=== PATIENT | male | born 1940 | race Caucasian/White ===

== ENCOUNTER 2016-12-12 11:56 | Inpatient (IN) | payer MEDICARE ==
[~2016-12-12] VITALS: Ht 180.3 cm; Wt 59.2 kg
--- NOTE | ~2016-12-12 | ECH ---
Transthoracic Echocardiography Report (TTE) Demographics Patient Name BIJAL PORTER Date of Study 12/13/2016 Patient Number [id number] Visit Number [id number] Date of 1940 Room Number 311 Accession Number [id number] Gender Male Age 76 year(s) Referring King Sunil Camacho MD Concrete Layer Kristel Voss Physician Dax Thomson MD [facility] Physician Interpreting Cheyenne Glover MD Automatic Glove Turner And Former Physician Supervising Ordering Physician King Sunil Camacho MD, MD/P Nurse Stress [employer] Machine Tender Conclusions Summary Technically adequate exam. The estimated left ventricular ejection fraction is 50%. Moderate assymetric septal left ventricular hypertrophy. Diastolic assessment reveals Grade I diastolic dysfunction. The left atrium is severely dilated by LA volume index measurement. moderate mitral regurgitation by color Doppler. Procedure Type of Study TTE procedure:Echo Complete SF. Procedure Date Date: 12/13/2016 Start: 08:48 AM Technical Quality: Adequate visualization Indications:Elevated Troponin and Hypertension. Appropriate Use Criteria: 9 Height: 71 inches Weight: 129 pounds BSA: 1.75 m Rhythm: Within normal limits HR: 86 bpm BP: 129/79 mmHg M-Mode/2D Measurements LV Diastolic Dimension: 5.04 cm LV Systolic Dimension: 3.94 cm LV Septum Diastolic: 1.66 cm LV PW Diastolic: 0.78 cm AO Root Dimension: 3.13 cm Cardiac Output: 4.84 l/min LA Dimension: 3.93 cm Cardiac Index: 2.77 l/min*m RV Diastolic Dimension: 3.08 cm LA volume index: 52 ml/m LVOT: 1.98 cm LVOT VTI: 18.27 cm RV Base: 3.8 cm LV Stroke volume: 56.23 ml RV Mid: 2.2 cm LV Stroke volume index: 32.13 ml/m TAPSE: 2.2 cm TDI-S': 13 cm/s Doppler Measurements AV Peak Velocity: 1.7 m/s MV Peak E-Wave: 1.11 m/s AV Peak Gradient: 11.56 mmHg MV Peak A-Wave: 1.19 m/s AV Mean Gradient: 7.06 mmHg MV E/A Ratio: 0.93 LVOT Peak Velocity: 1.09 m/s MV P1/2t: 40.5 msec AV Area (Continuity):2.03 cm MV Deceleration Time: 153.3 msec TR Velocity:2.19 m/s MV Area (PHT): 5.44 cm TR Gradient:19.15 mmHg PV Peak Velocity: 0.73 m/s Estimated RAP:3 mmHg PV Peak Gradient: 2.12 mmHg Estimated RVSP: 22 mmHg Estimated PASP: 22.15 mmHg E' Septal Velocity: 0.04 m/s A' Septal Velocity: 0.07 m/s E' Lateral Velocity: 0.06 m/s A' Lateral Velocity: 0.08 m/s RA Area: 17.48 cm Findings Left Ventricle The left ventricle is normal in size . Moderate assymetric septal left ventricular hypertrophy. Diastolic assessment reveals Grade I diastolic dysfunction. Right Ventricle Normal right ventricle structure and function. Left Atrium The left atrium is severely dilated by LA volume index measurement. Right Atrium Normal right atrial size. Mitral Valve Normal mitral valve structure and function. Mild-moderate mitral regurgitation by color Doppler. Aortic Valve The aortic valve is mildly sclerotic. Tricuspid Valve Normal tricuspid valve structure and function. Trivial tricuspid regurgitation by color Doppler. Normal pulmonary pressures. Pulmonic Valve The pulmonic valve is not well visualized. Pericardial Effusion No evidence of pericardial effusion. Miscellaneous Visualized portions of the aortic root and ascending aorta appear normal in size. Pleural Effusion No evidence of pleural effusion. Contractility Score LV regional wall motion:(0-Non visualized 1-Normal 2-Hypokinesis 3-Akinesis 4-Dyskinesis 5-Aneurysm) Signature
--- NOTE | 2016-12-13 16:29 | CO ---
ADMIT: 12/12/2016 RM/LOC: 311 [facility] MR#: [id number] [id number] [facility] [address] [place] [id number] BIJAL PORTER [address] [place] [address] Consultation Report SEX: M AGE: 76 : 1940 Corrected: 12/13/2016 0629 njv DATE OF CONSULTATION: 12/12/2016 ATTENDING PHYSICIAN: Jean-Pierre Verduzco CONSULTING PHYSICIAN: Samuel Juan MD REASON FOR CONSULTATION: Abdominal pain and gallstones. HISTORY OF PRESENT ILLNESS: This patient is a 76-year-old male, who was admitted actually to [facility]. He had come in there with some abdominal pain, that he mostly complained of lower abdominal pain and that is what he tells me, and pain down into his lower abdomen, back. No nausea or vomiting. No diarrhea. He takes milk of magnesia basically every night to keep his bowels move in, and he has been a little more constipated, but otherwise no blood and no vomiting, nothing of that nature. He does have a history of kidney stones in the past, nothing like that. History of T-cell lymphoma. History of recurrent pneumonias, significant vascular disease with bilateral above-knee amputations. He is a smoker, continues to smoke, has for years. He has had carpal tunnels done bilaterally. Appendix is his only abdominal surgery. Bilateral AKAs. CURRENT MEDICATIONS: Please see chart. PAST MEDICAL HISTORY: Includes prostate cancer, hypothyroidism, rheumatoid arthritis, coronary artery disease, chronic kidney disease, hyperlipidemia, carotid disease. ALLERGIES: AZATHIOPRINE AND LEFLUNOMIDE. FAMILY HISTORY: Otherwise, noncontributory. REVIEW OF SYSTEMS: As above in the HPI, otherwise negative. Currently his LFTs are normal. His white count is like 1.4. His creatinine is 1.9. Chest x-ray and ultimately had a CTA, does not show any evidence of pulmonary embolism, but significant pneumonia with a bad right upper lobe pneumonia, also a new nodule that is worrisome for cancer in his right upper lobe. Looking at his ultrasound and scans, he does have evidence of gallstones and a thickened gallbladder wall, but he was nontender over his gallbladder. There were no pericholecystic fluid things of that nature. PHYSICAL EXAMINATION: GENERAL: He is alert. He is oriented. He is in no significant distress currently. HEENT: His sclerae are nonicteric. Extraocular muscles appear intact. CHEST: Clear actually anteriorly, maybe some mild decrease on the right versus the left. No wheezes. No rhonchi. HEART: Appears regular rate and rhythm. ADMIT: 12/12/2016 RM/LOC: 311 [facility] MR#: [id number] [address] [address] [facility] [place] [address] Consultation Report SEX: M AGE: 76 : 1940 ABDOMEN: Thin, soft. He does not have any rebound, does not have tenderness really in the right upper quadrant. He actually has more of left abdominal tenderness in the left side. EXTREMITIES: He has bilateral above-knee amputations. ASSESSMENT AND PLAN: At this point, I would not jump in and take his gallbladder out. He has fairly significant pneumonia, may not tolerate a general anesthetic really well right now and I do not see that as the pressing issue unless something changes. We will follow him along. He very may well need a cholecystectomy, but I do not think anything in the next 24 hours needs to be done. We will, like I said, follow him along. He also need this right upper lobe nodule, that is worrisome, worked up with bronch/biopsy depending on how best to go about that. Samuel Juan MD/ milly JOB #: [id number] CC: Jean-Pierre Verduzco, Attending Physician Jean-Pierre Verduzco, Family Physician Corrected: 12/13/2016 0629 njv
--- NOTE | 2016-12-15 07:57 | HP ---
ADMIT: 12/12/2016 RM/LOC: 311 [facility] MR#: [id number] 2620 [facility] [address] [place] [id number] BIJAL PORTER [address] [place] [address] History and Physical SEX: M AGE: 76 : 1940 DATE OF SERVICE: CHIEF COMPLAINT: Hypoxemia. HISTORY OF PRESENT ILLNESS: A 76-year-old male, who was admitted to [facility] two days ago with abdominal pain. CT scan at that time showed gallstone, possible common bile duct stone. He was given some Dilaudid earlier today for pain control, and he became hypoxemic and was placed on a non-rebreather and transferred by ambulance to the emergency room at [place]. By the time he got here, his O2 levels were good, his Dilaudid worn off, and he was breathing fine. He does have a history of COPD. His main complaint at this time is ongoing abdominal pain on the right side, right upper quadrant abdominal pain. CT scan obtained in [place] did show, as mentioned, gallstones. Ultrasound showed some thickening of the gallbladder wall and [address] scan also was consistent with some bilateral pulmonary infiltrates, chronic scarring versus pneumonia. He denies any recent problems with cough or any fever. Denies any yellow jaundice or dane- colored stool. Denies any blood in the stool. The pain has been severe steady pain in right mid abdomen, radiating into his back. He is not certain if food aggravates it or not. PAST MEDICAL HISTORY: Significant with a diagnosis of T-cell leukemia; history rheumatoid arthritis, on chronic immunosuppressive therapy with chronic methotrexate. He has had a left nveaf-dtx-jota amputation, and right knee amputated at the knee due to peripheral vascular disease secondary to a hypothermic injury many years ago. He has also had a remote history of kidney stones. ALLERGIES: NONE LISTED. HOME MEDICATIONS: 1. Doxazosin 0.5 mg p.o. daily. 2. Folic acid 1 mg daily. 3. Methotrexate 6 tablets q.week. 4. Plaquenil 200 mg daily. 5. Levothyroxine 100 mcg daily. 6. Aspirin 81 mg daily. 7. Prednisone 2.5 mg daily. SOCIAL HISTORY: Retired. Smokes less than a pack of cigarette per day. Does not drink alcohol. FAMILY HISTORY: Noncontributory. REVIEW OF SYSTEMS: Negative other than what was noted above. PHYSICAL EXAMINATION: GENERAL: A 76-year-old male, who is alert, cooperative, and oriented x3. VITAL SIGNS: At this time is stable with O2 saturation 94% on 3 L of O2, ADMIT: 12/12/2016 RM/LOC: 311 [facility] MR#: [id number] [address] [address] [place] BIJAL [address] [facility] [address] [place] [address] History and Physical SEX: M AGE: 76 : 1940 pulse is 70 and regular, respiratory rate 22, temp 98.4, and BP 122/71, one time in the emergency room, BP was down to 99/65. HEENT: Skin color is very poor. He has somewhat pale, diaphoretic. TMs not visualized. HEENT: Eyes, pupils are equal, round, and reactive to light. Extraocular muscles intact. No jaundice. Throat is somewhat dry, but not inflamed. NECK: Supple. No lymphadenopathy. No thyromegaly. LUNGS: Showed decreased breath sounds in both bases. No rales, rhonchi, or wheezes. No retractions. No respiratory distress. HEART: Regular rate. No murmur heard. ABDOMEN: Flat, bowel sounds normoactive. He has quite a bit of tenderness and guarding in the right upper quadrant of the abdomen. AND RECTAL: Deferred. EXTREMITIES: Well-healed stumps on both legs, left kqfnu-yvv-aiwm amputation. Right leg amputated at the knee and has no signs of any inflammation or irritation of the stumps. DIAGNOSTIC IMPRESSION: 1. Cholelithiasis with probable cholecystitis. 2. Hypoxemia secondary to respiratory depression from Dilaudid. 3. History of T-cell leukemia. 4. History of chronic kidney disease. 5. History rheumatoid arthritis. 6. History of hypertension. 7. Peripheral vascular disease. Previous amputation. 8. Tobacco abuse. 9. On immunosuppressive therapy, steroids and methotrexate. PLAN: Admit to the hospital, at this time, we will get cultures, start him on IV antibiotics. He has not been on any antibiotics at [place]. We will continue with oxygen, try Toradol for pain control. Try to avoid respiratory depression. Obtain a consult with Oncology and with Surgery. Jean-Pierre Verduzco MD/ milly JOB #: [id number] CC: Jean-Pierre Verduzco, Attending Physician Jean-Pierre Verduzco, Family Physician
--- NOTE | 2016-12-20 08:15 | CO ---
ADMIT: 12/12/2016 RM/LOC: 311 [facility] MR#: [id number] 2620 [facility] [address] [place] [id number] BIJAL PORTER [address] [place] [address] Consultation SEX: M AGE: 76 : 1940 DATE OF CONSULTATION: 12/13/2016 ATTENDING PHYSICIAN: Jean-Pierre Verduzco CONSULTING PHYSICIAN: Olegario Cloud MD REASON FOR CONSULTATION: Elevated troponin. HISTORY OF PRESENT ILLNESS: Bijal is a 76-year-old male, whom I was asked to see in consultation from Dr. Verduzco regarding elevated troponin level. Bijal is not the best historian, but does state that he had a myocardial infarction back in 1992; at which time, they gave him some nitroglycerin, and he did not require any further workup he says. He denies though any recent chest pain. He was admitted to [facility] a couple of days ago with abdominal pain and was found on CT scan to have gallstones and a common bile duct stone. He was given some Dilaudid yesterday for pain control and became extremely hypoxic and was placed on a non-rebreather and had to be transferred to [place] for higher level of care. He does have a history of COPD. He continued to have some abdominal pain. It was the right upper quadrant pain. He said it radiated to his back. He denied any chest pain. He has been short of breath at times. Overnight, he had cardiac enzymes checked which did elevate his troponin. Here initially, it was 34.6 and decreased to 31 this morning. His CK level was elevated at 1217 and decreased to 1151. He denies any chest pain this morning, and he says, he is more comfortable. He says, his abdominal pain is better also. PAST MEDICAL HISTORY: 1. History of T-cell leukemia, followed by Oncology. 2. History of rheumatoid arthritis, on chronic immunosuppressive therapy with methotrexate. 3. History of left sshgb-rms-gsgb amputation and right hpcxt-cke-dwoa amputation, secondary to peripheral vascular disease, secondary to hypothermic injury years ago. 4. Remote history of kidney stones. 5. Possible history of myocardial infarction back in 1992 with no workup. ALLERGIES: NO KNOWN DRUG ALLERGIES. CURRENT MEDICATIONS: 1. Heparin drip. 2. Rocephin. 3. Zosyn. SOCIAL HISTORY: He is retired. He says he lives alone by himself in [place]. Smokes less than a pack per day. Denies any alcohol use. FAMILY HISTORY: Denies any family history of early coronary artery disease. REVIEW OF SYSTEMS: GENERAL: He denies any fever or chills. ADMIT: 12/12/2016 RM/LOC: 311 [facility] MR#: [id number] [address] [address] BIJAL PORTER [address] [place] [address] Consultation SEX: M AGE: 76 : 1940 HEENT: Denies any sinus congestion. Denies any decreased hearing. CARDIAC: Denies chest pain or palpitations. RESPIRATORY: He does have a cough. Denies any shortness of breath. GASTROINTESTINAL: He has had some abdominal pain in the right upper quadrant. GENITOURINARY: He does have some frequency. Denies dysuria or hematuria. MUSCULOSKELETAL: He has back pain. He also has bilateral amputations. NEUROLOGIC: Denies any history of TIA or strokes. ENDOCRINE: Denies any history of thyroid dysfunction or diabetes. PSYCHIATRIC: Denies any anxiety or depression. SKIN: Denies any rashes. HEMATOLOGIC/ONCOLOGIC: Does have history of T-cell leukemia, on chronic immunosuppressive therapy with methotrexate secondary to his rheumatoid arthritis. All other systems are reviewed and negative. PHYSICAL EXAMINATION: VITAL SIGNS: Blood pressure 129/79, pulse is 91, respirations 30, temperature 97.8, and oxygen 95% on nasal cannula. GENERAL: He is alert, oriented, and conversant. He is in no acute distress. HEENT: Moist mucous membranes. Extraocular muscles intact. No scleral icterus. NECK: Supple. No carotid bruits. No lymphadenopathy. LUNGS: He has distant breath sounds bilaterally. There are no wheezes right now. HEART: Regular rate and rhythm. No murmurs, rubs, or gallops. ABDOMEN: Soft. He does have some mild tenderness in the right upper quadrant, but states this is much better. EXTREMITIES: He has well-healed stumps on both legs with the left above-the- knee amputation and right BKA. DIAGNOSTIC DATA: Potassium 3.5, creatinine 1.2, glucose 120. CK was 1151, MB 67, both of which are down. Troponin is 31, which is down from 34. White blood cell count 5.4, hemoglobin 12, platelets 95. Lactic acid was elevated at 2.1. IMPRESSION AND PLAN: 1. Pneumonia/sepsis. On chest x-ray. 2. Elevated troponin. His troponin is significantly elevated, but he does not have any chest pain or ischemic EKG changes at this point. His EKG ADMIT: 12/12/2016 RM/LOC: 311 [facility] MR#: [id number] [address] [address] BIJAL PORTER [address] [place] [address] Consultation SEX: M AGE: 76 : 1940 does show old anterolateral Q waves. 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 We will start him on aspirin 81 mg daily. We will put him on a low-dose metoprolol for beta-estela. We will keep him on a heparin drip. We will check a fasting lipid panel. We will do an echocardiogram. Based upon his echo and clinical course, we will decide about the best ischemic evaluation, but likely, he will need a cardiac catheterization at some point. 3. Gallstones. 4. Peripheral vascular disease, status post bilateral amputations. We will follow along and amend our plan as his care progresses. Olegario Cloud MD/ milly JOB #: [id number] CC: Jean-Pierre Verduzco, Attending Physician Jean-Pierre Verduzco, Family Physician
--- NOTE | 2016-12-22 02:34 | CB ---
ADMIT: 12/12/2016 RM/LOC: 311 [facility] MR#: [id number] 2620 [facility] [address] [place], [place] [address] BIJAL PORTER [address] [place] [address] Code Blue Report SEX: M AGE: 76 : 1940 CORRECTED: 12/20/2016 1343 ZACHARY DATE: 12/14/2016 Please refer to the code sheet for complete details. Briefly, I was called to the bedside of a 76-year-old who was admitted inpatient with a recent myocardial infarction. Apparently, he had been doing slightly more poorly recently when they noted his rhythm changed, and he lost his pulse. When I arrived, they are doing CPR. He has received epinephrine, and he is pulseless except for CPR and VFib. HOSPITAL COURSE: We had an ACLS protocol. He was defibrillated multiple times. He was given amiodarone 300 IV, lidocaine 100 IV, and an amp of sodium bicarb. Dopamine drip was started and amiodarone drip was started. He did regain a pulse for a very short time frame. We gave him atropine. Again, refer to the code record. He then lost his pulse after multiple defibrillations turned asystole. We continued CPR for around 30 minutes. Family is in the room. I talked directly with them. We decided to cease CPR and pronounced him per the code record. I talked to [place] and Dr. Pee Cool, of [facility], and I talked to the family. ASSESSMENT: 1. CPR unsuccessful. 2. VFib. The patient was intubated. I did use an #3 Tejeda in insulate with the 8-0 ET tube without difficulty. 3. Intubated in the room. PLAN: We will make appropriate arrangements. Cleveland Huddleston MD/ milly JOB #: [id number] CC: Jean-Pierre Verduzco MD, Attending Physician Jean-Pierre Verduzco MD, Family Physician CORRECTED: 12/20/2016 1343 ZACHARY
--- NOTE | 2016-12-28 07:20 | DS ---
ADMIT: 12/12/2016 RM/LOC: 311 [facility] MR#: [id number] [address] [address] BIJAL PORTER [address] [place] [address] General Discharge Summary SEX: M AGE: 76 : 1940 ADMISSION DATE: 12/12/2016 DISCHARGE DATE: 12/14/2016 ADMITTING DIAGNOSES: 1. Acute respiratory failure. 2. Hypoxemia. COMPLICATING DIAGNOSES: On admission were: 1. Cholelithiasis. 2. Hypertension. 3. Peripheral vascular disease. 4. Chronic kidney disease. 5. History of T-cell leukemia. CAUSE OF : Acute myocardial infarction. COMPLICATING DIAGNOSIS: Coronary artery disease, pneumonia, and sepsis. CONSULTANTS: Olegario Cloud MD and Dr. Juan. CHIEF COMPLAINT/HISTORY OF PRESENT ILLNESS: A 76-year-old male, admitted to [facility] 2 days prior to this with abdominal pain. CT scan at that time showed gallstones with possible common duct stone. He was given IV Dilaudid for pain control. He became hypoxemic, was placed on non-rebreather and transferred by ambulance to the emergency room at [place]. By time he got to the [place] Emergency Room, his oxygen levels were improved, the IV Dilaudid worn off, and he was breathing fine. He does have history of chronic obstructive pulmonary disease. Primary complaint at time of admission was ongoing abdominal pain right upper quadrant, right sided, radiating to his back. Ultrasound shows a thickened gallbladder wall with 8 mm common duct diameter. CT scan showed some bilateral pulmonary infiltrates, scarring versus pneumonia, no signs of any pulmonary embolus. COURSE IN THE HOSPITAL: Bijal was admitted initially to PCU from the emergency room, but when I examined him in the emergency room, he was pale and diaphoretic and I changed admission to intensive care and did obtain Intensive Care consult. Oncology also was consulted because of his T-cell leukemia ADMIT: 12/12/2016 RM/LOC: 311 [facility] MR#: [id number] [address] [address] BIJAL PORTER [address] [facility] [address] [place] [address] General Discharge Summary SEX: M AGE: 76 : 1940 history. Initial serum troponin I level was elevated at 34, repeat was trended down slightly to 31. EKG did not show any acute changes. He denied any chest pain. With infiltrates, cultures were obtained and he was started on IV Zosyn and IV vancomycin. Initial creatinine was 1.9, repeat was 1.2. On the 2nd hospital day, he denied any chest pain. His abdominal pain was improved. He was continued to be monitored in intensive care. 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 Dunia whipple was called. Dr. Huddleston from the emergency room responded, and he was placed on ACLS protocol and given IV epinephrine lidocaine and amiodarone. Attempted cardioversion move on multiple occasions for persistent VFib; however, the code was unsuccessful, and the time of was 5:12 a.m. on December 14. Cause of was acute myocardial infarction. Jean-Pierre Verduzco MD/ milly JOB #: [id number] CC: Jean-Pierre Verduzco MD, Attending Physician Jean-Pierre Verduzco MD, Family Physician
--- NOTE | 2016-12-31 15:43 | ER ---
ADMIT: 12/12/2016 RM/LOC: ER [facility] MR#: [id number] [address] [place] [address] [place], [place] [address] BIJAL PORTER [address] [place] [address] Emergency Room Report SEX: M AGE: 76 : 1940 DATE: 12/12/2016 This 76-year-old gentleman who was hospitalized at [facility] for respiratory complaints as well as abdominal pain. Apparently while in the hospital, he developed increasing shortness of breath. There is some suspicion this is related to the Dilaudid he had been given 45 minutes prior to the onset of his respiratory duress. The PA called and asked for transfer for management of respiratory distress. He was requiring 10 L and saturating in the upper 80s to low 90s at that time according to the PA. By the time of his arrival in this Emergency Department, he was on 2 L and saturating at the mid 90s. Patient complains of some shortness of breath. He is a smoker. PHYSICAL EXAMINATION: GENERAL: Reveals a frail-appearing 76-year-old gentleman in mild amount of distress. He is alert, pleasant, and cooperative. LUNGS: Diminished sounds in the bases bilaterally. CARDIOVASCULAR: No murmur. Regular rate and rhythm. ABDOMEN: Soft, nontender. EXTREMITIES: Reveal no clubbing or cyanosis. Lab studies were reviewed from [place]. The patient was medically cleared in the ER, sent to the floor. Dr. Verduzco will be managing his care. DIAGNOSIS: Transfer for respiratory distress secondary to pneumonia and recent use of Dilaudid. Arthur Davila MD/ milly JOB #: [id number] CC: Arthur Davila MD, Attending Physician UNKNOWN, Family Physician
== END 2016-12-14 05:12 | disposition expired | DRG 871 ==
LOC: ER 11:56 → 3ICU 12:41
PROVIDERS: ADMIT Family Medicine
DX: A41.9 Sepsis, unspecified organism (principal); J96.01 Acute respiratory failure with hypoxia; I21.3 ST elevation (STEMI) myocardial infarction of unspecified site; J18.9 Pneumonia, unspecified organism; K80.10 Calculus of gallbladder with chronic cholecystitis without obstruction; J44.9 Chronic obstructive pulmonary disease, unspecified; R09.02 Hypoxemia; M06.9 Rheumatoid arthritis, unspecified; R79.89 Other specified abnormal findings of blood chemistry; I73.9 Peripheral vascular disease, unspecified; E03.9 Hypothyroidism, unspecified; I25.10 Atherosclerotic heart disease of native coronary artery without angina pectoris; E78.5 Hyperlipidemia, unspecified; I77.9 Disorder of arteries and arterioles, unspecified; I12.9 Hypertensive chronic kidney disease with stage 1 through stage 4 chronic kidney disease, or unspecified chronic kidney disease; F17.210 Nicotine dependence, cigarettes, uncomplicated; T40.2X5A Adverse effect of other opioids, initial encounter; N18.9 Chronic kidney disease, unspecified; Z85.72 Personal history of non-Hodgkin lymphomas; Z79.52 Long term (current) use of systemic steroids; Z79.82 Long term (current) use of aspirin; Z89.611 Acquired absence of right leg above knee; Z89.612 Acquired absence of left leg above knee; Z79.899 Other long term (current) drug therapy; Z85.46 Personal history of malignant neoplasm of prostate; I25.2 Old myocardial infarction